=== PATIENT | female | born 1930 | race Two or more races ===

== ENCOUNTER → 2018-09-13 | Outpatient (CLI) | payer OTHER ==
--- NOTE | 2018-09-13 16:32 | HKNOTE ---
DATE OF SERVICE: 09/13/2018 CHIEF COMPLAINT: Bilateral knee pain. HISTORY OF PRESENT ILLNESS: Ms. Uriostegui is an 87-year-old female complaining of severe bilateral knee pain. She has chronic history of bilateral knee osteoarthritis. She uses a cane for ambulation. S he has had previous injections of steroid, which was alleviated her pain. She takes naproxen for ace n control. She also uses Voltaren gel. PHYSICAL EXAMINATION: GAIT: Antalgic gait, reciprocal gait pattern. RIGHT KNEE: Varus alignment. Tender over the medial and lateral joint lines. A 0 to 90 degrees ran ge of motion, stable to varus valgus stress. A 5/5 function of quadriceps, tibialis anterior, gastro c soleus. LEFT KNEE: Varus alignment. Tender over the medial and lateral joint lines. A 0 to 90 degrees rang e of motion, stable to varus valgus stress. A 5/5 function of quadriceps, tibialis anterior, gastroc soleus. DIAGNOSTIC DATA: X-rays of right knee: There is advanced tricompartmental degenerative changes of t he right knee with [id number] contact in all 3 compartments. X-rays of left knee: There is advanc ed tricompartmental degenerative changes with [id number] contact in all compartments. DIAGNOSIS: An 87-year-old female with bilateral knee osteoarthritis. PLAN: We will request authorization for bilateral knee steroid injections. She was given a prescrip tion for naproxen and Voltaren gel. She will follow up in 3 weeks. Dictated By: RAYMOND DUNLAP/YE Conf#: [id number] DID#: [id number]
--- NOTE | 2018-09-14 09:14 | RADRPT ---
PROCEDURE: Bilateral knee series CLINICAL INDICATION: Pain TECHNIQUE: AP weightbearing, PA axial weightbearing, lateral weightbearing and sunrise views of the right and left knees were obtained COMPARISON: None FINDINGS: Severe tricompartment degenerate joint disease of both knees worse involving the medial compartments bilaterally. No acute fractures or dislocations. The bones are osteopenic without focal bony blastic or lytic lesions. No erosions. Tiny bilateral suprapatellar knee joint effusions. The soft tissues ar e otherwise unremarkable. IMPRESSION: 1. Severe degenerate joint disease of both knees without acute fractures or dislocations. 2. Tiny bilateral suprapatellar knee joint effusions. 3. Osteopenia. RPTAT:AAJJ Physician Giorgio Date Time Electronically viewed and signed by Audrey Espinal Physician on 09/14/2018 09:14 BM/
== END | disposition home or self-care (01) ==
LOC: HKI 16:25
PROVIDERS: ATTEND Orthopaedic Surgery Adult Reconstructive Orthopaedic Surgery
DX: M17.0 Bilateral primary osteoarthritis of knee (principal)
CPT/HCPCS: 73564; Z7500; G0463

== ENCOUNTER → 2018-09-27 | Outpatient (CLI) | payer OTHER ==
--- NOTE | 2018-09-27 22:07 | HKNOTE ---
DATE OF SERVICE: 09/27/2018 CHIEF COMPLAINT: Bilateral knee pain. HISTORY OF PRESENT ILLNESS: Ms. Uriostegui is an 87-year-old female. She is here today for her bilateral knee steroid injections. GAIT: Antalgic gait, reciprocal gait pattern. RIGHT KNEE EXAMINATION: Varus alignment. Tender over the medial or lateral joint line, 0 to 90 degrees range of motion, stable to varus valgus stress. LEFT KNEE EXAMINATION: Varus alignment. Tender over the medial or lateral joint line, 0 to 90 degrees range of motion, stable to varus valgus stress. DIAGNOSIS: An 87-year-old female with bilateral knee osteoarthritis. PLAN: After obtaining verbal consent, the bilateral knees were prepped and draped in the usual sterile fashion. A mixture of betamethasone with 3 mL of 1% lidocaine was distilled in each knee through the lateral portal. There were no complications. She tolerated the procedure well. She was instructed to ice and elevate the bilateral knees. She can be weightbearing as tolerated. She will follow up in 3 months in my [place] office. Dictated By: RAYMOND DUNLAP/YE Conf#: [id number] DID#: [id number] HILDA
== END | disposition home or self-care (01) ==
LOC: HKI 15:11
PROVIDERS: ATTEND Orthopaedic Surgery Adult Reconstructive Orthopaedic Surgery
DX: M17.0 Bilateral primary osteoarthritis of knee (principal)
CPT/HCPCS: 20610; Z7500; Z7610; G0463